=== PATIENT | female | born 1955 | race Caucasian/White ===

== ENCOUNTER 2016-06-08 20:52 | Inpatient (IN) | payer MEDICARE ==
[~2016-06-08] VITALS: Ht 157.5 cm; Wt 75.8 kg
--- NOTE | 2016-06-08 20:00 | NUR ---
PATIENT RECEIVED TO ROOM FROM [facility] VIA STRETCHER. AWAKE AND ALERT, BUT CONFUSED. RR EVEN AND UNLABORED. 0 S/S OF DISTRESS. NO S/S OF PAIN. STARTED IV TO LEFT FA WITH 20 GAUGE. CHANGED LINENS AND GOWN DUE TO INCONTINENT EPISODE OF BLADDER. AWAITING ORDERS FROM DR. TELLO.
--- NOTE | 2016-06-08 23:30 | NUR ---
INITIATED FLUIDS PER TELEPHONE ORDER. PLACED 16FR MUIR CATHETER PER ORDER. BATHER PATIENT AND REPOSITIONED TO RIGHT.
[2016-06-09] VITALS (7 sets, daily range): BP systolic 121–157; BP diastolic 56–86; Ht 157.5 cm; Wt 75.8 kg
[2016-06-09 01:25] LABS: APPEARANCE TURBID (CLEAR); BACTERIA MANY /hpf (NONE SEEN); BILIRUBIN NEGATIVE (NEGATIVE); CALCIUM OXALATE CRYSTALS 0-5 /hpf (NONE SEEN); COLOR DK YELLOW (YELLOW); EPITHELIAL CELLS 0-5 /hpf (0-5); GLUCOSE NEGATIVE (NEGATIVE); GRANULAR CAST RARE /lpf (NONE SEEN); HYALINE CAST 0-5 /lpf (NONE SEEN); KETONE NEGATIVE (NEGATIVE); LEUKOCYTE ESTERASE 1+ (NEGATIVE); MUCUS >1+ /lpf (NONE SEEN); NITRITE POSITIVE (NEGATIVE); PROTEIN TRACE mg/dL (NEGATIVE); UROBILINOGEN NORMAL (NORMAL); WHITE CELLS - URINE 25-50 /hpf (0-5)
--- NOTE | 2016-06-09 02:00 | NUR ---
REPOSITIONED PATIENT TO LEFT. NO NEEDS AT THIS TIME
[2016-06-09] MEDS ORDERED: K-TAB10 MEQ PO (02:55)
[2016-06-09] MEDS ORDERED: ZOLOFT100 MG PO (02:56)
[2016-06-09] MEDS ORDERED: KLONOPIN0.5 MG (02:57)
[2016-06-09] MEDS ORDERED: RESOURCE PO (02:59)
[2016-06-09] MEDS ORDERED: ACETAMINOPHEN500 M1 PO (03:00)
[2016-06-09] MEDS ORDERED: ULTRAM50 MG PO (03:01)
[2016-06-09] MEDS ORDERED: OMEPRAZOLE20 M1 PO (03:23)
--- NOTE | 2016-06-09 04:00 | NUR ---
PATIENT SLEEPING. REPOSITIONED TO BACK. ASSESSMENT UNCHANGED THROUGHOUT SHIFT.
[2016-06-09 05:42] LABS: BASOPHILS 0.3 % (0.0-2.0); EOSINOPHILS 0.5 % (0-7); HEMATOCRIT 41.8 % (36.0-48.0); HEMOGLOBIN 13.5 g/dL (12-16); LYMPHOCYTES 11.6 % (15-50); MCH 29.9 pg (26.0-34.0); MCHC 32.3 g/dL (31.0-37.0); MCV 92.5 fL (80.0-100.0); MEAN PLATELET VOLUME 12.8 fL (7.4-10.4); MONOCYTES 16.6 % (2-11); PLATELET COUNT 107 10x3/uL (130-400); RBC 4.52 10x6/uL (4.00-5.40); RDW 13.9 % (11.5-14.5); WBC 3.8 10x3/uL (4.8-10.8)
[2016-06-09 06:19] LABS: CALC OSMOLALITY 288 mosm/kg (275-300); CALCIUM 8.4 mg/dL (8.5-10.1); CHLORIDE - SERUM 108 mmol/L (98-107); CREATININE - SERUM 0.8 mg/dL (0.6-1.3); GLUCOSE 122 mg/dL (74-106); POTASSIUM - SERUM 3.4 mmol/L (3.5-5.1); SODIUM 145 mmol/L (136-145); THYROID STIMULATING HORMONE 1.03 uIU/mL (0.36-3.74); UREA NITROGEN 9 mg/dL (7-18); eGFR NON AFRICAN AMERICAN 77 mL/min (90-120)
--- NOTE | 2016-06-09 08:00 | NUR ---
PT CONFUSED FAMILY AT BEDSIDE RESP EVEN AND NONLABORED IV TO LEFT FOREARM PATENT AND INTACT BED AT LOWEST SETTING CALL LIGHT WITHIN REACH WILL CONTINUE TO MONITOR
--- NOTE | 2016-06-09 09:45 | NUR ---
Patient Name: DEMETRIA FRIEDMAN Admission Status: Elective Accout number: [id number] Admission Date: 06-08-2016 : 1955 Admission Diagnosis: Attending: FERNANDA Current LOS: 1 Anticipated DC Date: 06-14-2016 Planned Disposition: Nursing Facility [facility] Primary Insurance: MEDICARE A & B Discharge Planning Comments: CM MET WITH FAMILY REGARDING D/C NEEDS AND PLANS. PATIENT IS A RESIDENT OF [facility] IN [place] FOR AROUND 2 YEARS PER FAMILY. PATIENT WILL RETURN THERE AT DISCHARGE. PATIENTS PCP IS DR. TELLO AND PHARMACY IS IN HOUSE. PATIENT IS [place] AND IS A FEEDER. CM WILL CONTINUE TO FOLLOW PATIENT WITH D/C NEEDS AND PLANS. PCP DR. TELLO [facility] HOUSE [facility]ARM[facility] OBINNA (DAUGHTER) [phone] INGE (DAUGHTER) [phone] Stroke Belt Sander Operator: Mya Sheldon Is the patient Alert and Oriented? No 0 * How many steps to enter\exit or inside your home? 0 0 * PCP DR. TELLO 0 * Pharmacy IN HOUSE AT [facility] AT [place] 0 * Preadmission Environment [facility] 0 * Facility Name [facility] 0 * ADLs Total Dependent 0 * Other Equipment [place] ([facility] HAS ALL EQUIP. NEEDED) 0 * List name and contact numbers for known caregivers / representatives who currently or will assist patient after discharge: OBINNA (DAUGHTER) [phone] INGE (DAUGHTER) [phone] 0 * Community resources currently utilized None 0 * Additional services required to return to the preadmission environment? Yes 0 * Can the patient safely return to the preadmission environment? Yes 0 * Has this patient been hospitalized within the prior 30 days at any hospital? No 0 Grand Total: 0
--- NOTE | 2016-06-09 19:00 | NUR ---
PATIENT MORE ALERT. HOB 30 DEGREES. RR EVEN AND UNLABORED. IV TO RIGHT FA PATENT WITH NO REDNESS OR SWELLING. MUIR SECURED WITH STATLOCK. B/A ON. SRX2. BED LOW. CALL LIGHT WITHIN REACH.
--- NOTE | 2016-06-09 21:00 | NUR ---
ASSESSMENT COMPLETE. FAMILY NOW IN ROOM. PATIENT TOOK PO MEDS WITHOUT TROUBLE. FAMILY FEEDING PATIENT APPLESAUCE NOW. NO N/V NOTED.
[2016-06-10] VITALS: BP 131/77
[2016-06-10 04:00] VITALS: BP 125/49
--- NOTE | 2016-06-10 04:00 | NUR ---
MUIR CARE COMPLETE AND BATH GIVEN.
[2016-06-10 06:29] LABS: ALBUMIN 3.3 g/dL (3.4-5.0); ALKALINE PHOSPHATASE 169 U/L (46-116); ALT (SGPT) 61 U/L (10-68); BILIRUBIN - TOTAL 0.43 mg/dL (0.2-1.3); CALC OSMOLALITY 281 mosm/kg (275-300); CARBON DIOXIDE 24.9 mmol/L (21.0-32.0); CHLORIDE - SERUM 106 mmol/L (98-107); CREATININE - SERUM 0.6 mg/dL (0.6-1.3); GLUCOSE 130 mg/dL (74-106); MAGNESIUM - SERUM 1.9 mg/dL (1.8-2.4); POTASSIUM - SERUM 3.4 mmol/L (3.5-5.1); PROTEIN - SERUM 6.1 g/dL (6.4-8.2); SODIUM 142 mmol/L (136-145); eGFR NON AFRICAN AMERICAN > 90 mL/min (90-120)
[2016-06-10 06:38] LABS: BASOPHILS 0.3 % (0.0-2.0); EOSINOPHILS 0.3 % (0-7); HEMATOCRIT 39.5 % (36.0-48.0); HEMOGLOBIN 12.9 g/dL (12-16); IMMATURE GRANULOCYTES 0.3 % (0-5); LYMPHOCYTES 17.6 % (15-50); MCH 30.1 pg (26.0-34.0); MCHC 32.7 g/dL (31.0-37.0); MCV 92.3 fL (80.0-100.0); MEAN PLATELET VOLUME 13.4 fL (7.4-10.4); MONOCYTES 14.7 % (2-11); NEUTROPHILS 66.8 % (40-80); PLATELET COUNT 97 10x3/uL (130-400); RBC 4.28 10x6/uL (4.00-5.40); RDW 13.9 % (11.5-14.5); WBC 3.5 10x3/uL (4.8-10.8)
[2016-06-10 06:40] LABS: UREA NITROGEN 5 mg/dL (7-18)
[2016-06-10 07:10] LABS: PLATELET ESTIMATE DECREASED
[2016-06-10] MEDS ORDERED: ROCEPHIN 1 GM/D51 G1 IV (08:38)
[2016-06-10] MEDS ORDERED: K-DUR20 MEQ PO (08:39)
[2016-06-10] MEDS ORDERED: FLORAJEN3 CAPS460 MG PO (08:40)
[2016-06-10] MEDS ORDERED: FLORASTOR250 MG PO (08:41)
[2016-06-10] MEDS ORDERED: PROTONIX I40 MG/VIAL PO (08:41)
[2016-06-10] MEDS ORDERED: CARAFATE1 G/10 ML PO (08:42)
[2016-06-10 08:50] VITALS: BP 145/74
--- NOTE | 2016-06-10 09:00 | NUR ---
FEED BREAKFAST PER STAFF. ATE OVER 75% OF MEAL. NO SIGNS OF COUGHING OR DIFFICULTY WITH SWALLOW NOTED.
--- NOTE | 2016-06-10 09:16 | NUR ---
CM REASSESSMENT NOTE: PATIENT IS DISCHARGING BY AMBULANCE BACK TO [facility] TODAY ([facility] BED)
[2016-06-10] MEDS ORDERED: CEFTRIAXONE1 G/VIAL IM (09:56)
--- NOTE | 2016-06-10 10:20 | NUR ---
MUIR D/C WITH TIP INTACT. [facility] PER STAFF.
--- NOTE | 2016-06-10 10:25 | NUR ---
REPORT CALLED TO CLARIBEL GASTON LPN AT [facility]. ALL QUESTIONS ANSWERED.
--- NOTE | 2016-06-10 11:30 | NUR ---
DISCHARGED TO [facility] VIA AMBULANCE. FAMILY IN ROOM AT TIME OF TRANSFER.
== END 2016-06-10 11:30 | DRG 392 ==
LOC: D.MS 20:52
PROVIDERS: ADMIT Family Medicine
PROC: 0T9B70Z Drainage of Bladder with Drainage Device, Via Natural or Artificial Opening (ICD-10-PCS; principal; 2016-06-08)
PROC: BD11YZZ Fluoroscopy of Esophagus using Other Contrast (ICD-10-PCS; 2016-06-09)
DX: K22.5 Diverticulum of esophagus, acquired (principal); N39.0 Urinary tract infection, site not specified; R13.10 Dysphagia, unspecified; K21.9 Gastro-esophageal reflux disease without esophagitis; F03.90 Unspecified dementia, unspecified severity, without behavioral disturbance, psychotic disturbance, mood disturbance, and anxiety; E66.9 Obesity, unspecified; F41.8 Other specified anxiety disorders; Z85.40 Personal history of malignant neoplasm of unspecified female genital organ; Z68.30 Body mass index [BMI] 30.0-30.9, adult; K44.9 Diaphragmatic hernia without obstruction or gangrene